=== PATIENT | female | born 1950 | race Caucasian/White ===

== ENCOUNTER 2024-05-30 22:39 | Emergency (ER) | payer OTHER ==
[~2024-05-30] VITALS: Ht 167.6 cm; Wt 74.0 kg
[~2024-05-30 22:39] MED LIST: APIX5TAB PO; EMPA1TAB PO; FEXO-42 PO; METO-158 PO; VERI10TA PO
--- NOTE | 2024-05-30 23:03 | ED.PDOC ---
HPI Comments 73 year old female brought in by EMS presents to the ED with a chief complaint of palpitations onset today (05/30/24) around 20:30. Patient states she looked at her watch and noticed HR was elevated, called urgent care and was told to call 911. Upon EMS arrival HR was 174, BP 170/129 and upon ED arrival HR was 90. Patient states she is compliant with her medication. PMHx a-fib, CHF. Denies chest pain, shortness of breath, fever, chills, headache, nausea, vomiting, diarrhea, dizziness, weakness. No other symptoms or modifying factors present at this time. Chief Complaint: Palpitations Time Seen by MD: 22:45 Reviewed Notes: Medications, Allergies Allergies: Uncoded Allergies: COLD TEMPERATURES (Allergy, Unknown, SWOLLEN HIVES, 05/12/24) NONE (Allergy, Unknown, 05/12/24) Home Meds Reported Medications Fexofenadine Hydrochloride (PETER ALLERGY) 180 Mg Tab, 1 TAB PO DAILY for COLD URTICARIA, #30 TAB 2 Refills 05/12/24 Vericiguat (Verquvo) 10 Mg Tab, 10 MG PO DAILY for CIRCULATION, TAB 05/12/24 Empagliflozin (Jardiance) 10 Mg Tab, 10 MG PO DAILY for HF, TAB 05/12/24 Apixaban Base (ELIQUIS) 5 Mg Tab, 5 MG PO BID for A. FIB, TAB 05/12/24 Metoprolol Tartrate (Metoprolol Tartrate) 50 Mg Tab, 50 MG PO DAILY for ARRHYTHMIA for 30 Days, MG 05/12/24 Information Source: Patient, Emergency Med Personnel Mode of Arrival: EMS Severity: Moderate Timing: Hours Duration: Since onset Prehospital treatment: None Radiation: No Radiation Onset: At Rest PE Risk Factors: None History of: Other Associated Signs and Symptoms: Palpitations Past Medical History PAST MEDICAL HISTORY: AFIB, CHF Surgical History: Denies all surgeries ACOUSTIC INTELLIGENCE SPECIALIST History: No Pertinent ACOUSTIC INTELLIGENCE SPECIALIST History Family History Family History: Reviewed,noncontributory to illness, No family hx of Cancer, No family hx of DM, No family hx of Heart nancy, No family hx of HTN, No family hx ofKidney nancy, No family hx of Liver nancy, No family hx of Lung nancy, No family hx of Stroke Social History Smoker: Non-Smoker Alcohol: Denies ETOH Use Drugs: Denies Drug Use Lives In: Home Constitutional: denies: chills, diaphoresis, fatigue, fever, malaise, sweats, weakness, others EENTM: denies: blurred vision, double vision, ear bleeding, ear discharge, ear drainage, ear pain, ear ringing, eye pain, eye redness, hearing loss, mouth pain, mouth swelling, nasal discharge, nose bleeding, nose congestion, nose pain, photophobia, tearing, throat pain, throat swelling, voice changes, others Respiratory: denies: cough, hemoptysis, orthopnea, SOB at rest, shortness of breath, SOB with excertion, stridor, wheezing, others Cardiovascular: reports: palpitations; denies: chest pain, dizzy spells, diaphoresis, Dyspnea on exertion, edema, irregular heart beat, left arm pain, lightheadedness, PND, syncope, others Gastrointestinal: denies: abdomen distended, abdominal pain, blood streaked bowels, constipated, diarrhea, dysphagia, difficulty swallowing, hematemesis, melena, nausea, poor appetite, poor fluid intake, rectal bleeding, rectal pain, vomiting, others Genitourinary: denies: abnormal vagina bleeding, burning, dyspareunia, dysuria, flank pain, frequency, hematuria, incontinence, pain, , vagina discharge, urgency, others Neurological: denies: dizziness, fainting, headache, left sided numbness, left sided weakness, numbness, paresthesia, pre-existing deficit, right sided numbness, right sided weakness, seizure, speech problems, tingling, tremors, weakness, others Musculoskeletal: denies: back pain, gout, joint pain, joint swelling, muscle pain, muscle stiffness, neck pain, others Integumetry: denies: bruises, change in color, change in hair/nails, dryness, laceration, lesions, lumps, rash, wounds, others Allergic/Immunocompromised: denies: Difficulty Healing, Frequent Infections, Hives, Itching, others Hematologic/Lymphatic: denies: anemia, blood clots, easy bleeding, easy bruising, swollen glands, others Endocrine: denies: excessive hunger, excessive sweating, excessive thirst, excessive urination, flushing, intolerance to cold, intolerance to heat, unexplained weight gain, unexplained weight loss, others Psychiatric: denies: anxiety, bipolar disorder, depression, hopeless, panic disorder, schizophrenia, sleepless, suicidal, others All Other Systems: Reviewed and Negative Physical Exam General Appearance: No Apparent Distress, Normal HEENT: Normal ENT Inspection, Pharynx Normal, TMs Normal Neck: Full Range of Motion, Non-Tender, Normal, Normal Inspection Respiratory: Chest Non-Tender, Lungs Clear, No Accessory Muscle Use, No Respiratory Distress, Normal Breath Sounds Cardiovascular: No Edema, No JVD, No Murmur, No Gallop, Normal Peripheral Pulses, Regular Rate/Rhythm Breast Exam: Deferred Gastrointestinal: No Organomegaly, Non Tender, No Pulsatile Mass, Normal Bowel Sounds, Soft Genitalia: Deferred Pelvic: Deferred Rectal: Deferred Extremities: No calf tenderness, Normal capillary refill, Normal inspection, Normal range of motion, Non-tender, No pedal edema Musculoskeletal : Apperance: Normal Neurologic: Alert, curriculum and instruction specialist II-XII nml as Tested, No Motor Deficits, Normal Affect, Normal Mood, No Sensory Deficits Cerebellar Function: Normal Reflexes: Normal Skin: Dry, Normal Color, Warm Lymphatic: No Adenopathy Was a procedure done? Was a procedure done?: No CP Differential Dx Differential Diagnosis: A-fib, RI, PAC's Differential Diagnosis: HTN Essential, HTN Accelerated Differential Diagnosis: Gastritis, Myocardial Infarction X-Ray, Labs, Meds, VS Vital Signs Date Time Temp Pulse Resp B/P (MAP) Pulse Ox O2 Delivery O2 Flow Rate FiO2 05/31/24 01:29 92 05/30/24 23:52 93 18 95 Room Air* 0 21 05/30/24 23:48 98.4 93 18 165/104 (124) 95 98.4 05/30/24 23:32 100 05/30/24 22:46 98.2 94 16 170/129 (143) 95 98.2 05/30/24 22:39 92 Lab Test 05/31/24 01:27 05/31/24 00:27 Range/Units Troponin I High Sensitivity Pending 6 </=34 ng/L White Blood Count 7.1 4.4-10.8 10^3/uL Red Blood Count 5.17 4.0-5.20 10^6/uL Hemoglobin 15.1 12.2-16.2 g/dL Hematocrit 44.3 36.0-46.0 % Mean Corpuscular Volume 85.7 80.0-100.0 fL Mean Corpuscular Hemoglobin 29.3 28.0-32.0 pg Mean Corpuscular Hemoglobin Concent 34.2 32.0-36.0 g/dL Red Cell Distribution Width 17.5 H 11.8-14.3 % Platelet Count 354 140-450 10^3/uL Mean Platelet Volume 6.0 L 6.9-10.8 fL Neutrophils (%) (Auto) 59.6 37.0-80.0 % Lymphocytes (%) (Auto) 27.7 10.0-50.0 % Monocytes (%) (Auto) 10.3 0.0-12.0 % Eosinophils (%) (Auto) 0.9 0.0-7.0 % Basophils (%) (Auto) 1.5 0.0-2.0 % Neutrophils # (Auto) 4.2 1.6-8.6 10 ^3/uL Lymphocytes # (Auto) 2.0 0.4-5.4 10 ^3/uL Monocytes # (Auto) 0.7 0-1.3 10 ^3/uL Eosinophils # (Auto) 0.1 0-0.8 10 ^3/uL Basophils # (Auto) 0.1 0-0.2 10 ^3/uL Nucleated Red Blood Cells 0.1 % Sodium Level 141 136-145 mmol/L Potassium Level 3.8 3.5-5.1 mmol/L Chloride Level 107 98-107 mmol/L Carbon Dioxide Level 25 20-31 mmol/L Anion Gap 9 5-15 Blood Urea Nitrogen 13 9-23 mg/dL Creatinine 0.79 0.550-1.02 mg/dL Glomerular Filtration Rate Calc 79 >90 mL/min BUN/Creatinine Ratio 16.5 10.0-20.0 Serum Glucose 106 74-106 mg/dL Calcium Level 10.6 H 8.7-10.4 mg/dL B-Type Natriuretic Peptide 107.70 0-100 pg/mL [address] [address] Ph: [phone] DIAGNOSTIC IMAGING Diagnostic Imaging Report : [id number] Signed PATIENT: MARGO HERNANDEZ ACCT: [id number] UNIT: [id number] : 1950 LOC: ER ROOM / BED: / AGE / SEX: 73 / F ADM STATUS: REG ER SERVICE ORDERING PHYSICIAN: DIEGO ANAND MD PROCEDURE(s): CXRP - CHEST PORTABLE REASON: palpitations ORDER NUMBER(s): [id number], ACCESSION NUMBER(s): [id number] CHEST RADIOGRAPH Indication: palpitations Technique: Single frontal view of the chest was obtained COMPARISON: None FINDINGS: Lines and Tubes: None Lungs: Clear Pleura: No effusion. No pneumothorax. Cardiomediastinal contours: Unremarkable Bones: Unremarkable IMPRESSION: No abnormality demonstrated. ATED BY: DOYLE MCMILLAN MD DICTATED DATE/TIME: 05/31/24129 SIGNED BY: DOYLE MCMILLAN MD SIGNED DATE/TIME: 05/31/24129 CC: Time of 1ST Reevaluation: 23:15 Reevaluation 1ST: Unchanged Patient Education/Counseling: Diagnosis, Treatment, Prognosis Family Education/Counseling: No Family Present Departure 1 Departure Time of Disposition: 01:45 (Patient is asymptomatic. Patient is feeling well. Vitals are normal EKGs nonischemic. We will discharge patient home with outpatient follow) Impression: Primary Impression: Tachycardia Disposition: 01 HOME / SELF CARE / HOMELESS Condition: Stable Additional Instructions: You presented today with concern for elevated heart rate. Your workup today was benign including labs, troponin, EKG, chest x-ray. Your pain may be from musculoskeletal strain, acid reflux, anxiety, or many other factors. It is important to follow up with your regular doctor within 1 week. If your symptoms worsen or you have any other concerns please return to the emergency room. Discharged With: Self Critical Care Note Critical Care Time?: No Stability Stability form required: No Heart Score Heart Score: Heart Score Response (Comments) Value History Slightly Suspicious 0 EKG Normal 0 Age >65 2 Risk Factors 1 or 2 risk factors 1 Troponin Normal limit 0 Total 3 I personally scribed for DIEGO ANAND MD ([email or web address]) on 05/30/24 at 23:03. Electronically submitted by Jen Plummer ([email or web address]). I personally scribed for DIEGO ANAND MD ([email or web address]) on 05/30/24 at 23:07. Electronically submitted by Jen Plummer ([email or web address]). I personally scribed for DIEGO ANAND MD ([email or web address]) on 05/31/24 at 01:35. Electronically submitted by Jen Plummer ([email or web address]). DIEGO ANAND MD May 30, 2024 23:03
[2024-05-30 23:52] VITALS: PULSE 93; RESP 18; O2SAT 95
[2024-05-31 00:37] LABS: Basophils # (auto) 0.1 10 ^3/uL (0-0.2); Basophils % (auto) 1.5 % (0.0-2.0); Eosinophils # (auto) 0.1 10 ^3/uL (0-0.8); Eosinophils % (auto) 0.9 % (0.0-7.0); Hematocrit 44.3 % (36.0-46.0); Hemoglobin 15.1 g/dL (12.2-16.2); Lymphocytes % (auto) 27.7 % (10.0-50.0); Mean Corpuscular Hemoglobin 29.3 pg (28.0-32.0); Mean Corpuscular Hgb Conc. 34.2 g/dL (32.0-36.0); Mean Corpuscular Volume 85.7 fL (80.0-100.0); Monocytes # (auto) 0.7 10 ^3/uL (0-1.3); Monocytes % (auto) 10.3 % (0.0-12.0); Neutrophils # (auto) 4.2 10 ^3/uL (1.6-8.6); Neutrophils % (auto) 59.6 % (37.0-80.0); Nucleated Red Blood Cells % 0.1 %; Platelet Count (auto) 354 10^3/uL (140-450); Red Blood Cells 5.17 10^6/uL (4.0-5.20); Red Cell Distribution Width 17.5 % (11.8-14.3); White Blood Cell 7.1 10^3/uL (4.4-10.8)
[2024-05-31 00:47] LABS: Chloride 107 mmol/L (98-107); Potassium 3.8 mmol/L (3.5-5.1); Sodium 141 mmol/L (136-145)
[2024-05-31 00:48] LABS: Anion Gap 9 (5-15); Carbon Dioxide 25 mmol/L (20-31)
[2024-05-31 00:53] LABS: BUN/Creatinine Ratio 16.5 (10.0-20.0); Blood Urea Nitrogen 13 mg/dL (9-23); Glucose 106 mg/dL (74-106)
[2024-05-31 00:54] LABS: Calcium 10.6 mg/dL (8.7-10.4)
--- NOTE | 2024-05-31 01:32 | DVH ---
CHEST RADIOGRAPH Indication: palpitations Technique: Single frontal view of the chest was obtained COMPARISON: None FINDINGS: Lines and Tubes: None Lungs: Clear Pleura: No effusion. No pneumothorax. Cardiomediastinal contours: Unremarkable Bones: Unremarkable IMPRESSION: No abnormality demonstrated.
[2024-05-31 01:56] LABS: Urine Bacteria None Seen /hpf (None Seen)
[2024-05-31 02:05] LABS: Urine Blood Negative /uL (Negative); Urine Clarity Clear (Clear); Urine Color Light-Yellow (Yellow); Urine Protein, UAD Negative (Negative); Urine Specific Gravity 1.012 (1.001-1.035); Urine Squamous Epithelial Cell FEW /hpf (<5); Urine Urobilinogen Normal (Negative); Urine WBC < 1 /HPF (0-5); Urine pH 6.5 (5.0-9.0)
[2024-05-31 02:10] VITALS: BP 119/70; PULSE 91; RESP 24; TEMP 98.7; O2SAT 94
--- NOTE | 2024-05-31 06:40 | ECG ---
[facility] Test Date: 2024-05-30 Test Time: 22:37:55 Pat Name: MARGO HERNANDEZ Department: ed Room: Gender: F Safety Relief Valve Technician: leslie : 1950 Requested By: DIEGO ANAND Order Number: [id number] Reading MD: Garfield Green Measurements Intervals [place] Rate: 92 P: 50 IN: 149 QRS: -77 QRSD: 105 T: 51 QT: 365 QTc: 452 Interpretive Statements Sinus rhythm Supraventricular bigeminy Inferior infarct, old Probable anterior infarct, age indeterminate Electronically Signed On 05-31-2024 22:41:35 PDT by Garfield Green Please click the below link to view image of tracing.
--- NOTE | 2024-05-31 06:40 | ECG ---
[facility] Test Date: 2024-05-30 Test Time: 23:32:29 Pat Name: MARGO HERNANDEZ Department: ED Room: Gender: F Net Software Developer: [email or web address] : 1950 Requested By: DIEGO ANAND Order Number: [id number] Reading MD: Garfield Green Measurements Intervals [place] Rate: 100 P: 67 AR: 131 QRS: -55 QRSD: 98 T: 41 QT: 374 QTc: 483 Interpretive Statements Sinus tachycardia Multiple premature complexes, vent & supraven Abnormal R-wave progression, late transition Inferior infarct, old Electronically Signed On 05-31-2024 22:41:37 PDT by Garfield [email or web address] Please click the below link to view image of tracing.
--- NOTE | 2024-05-31 06:41 | ECG ---
[facility] Test Date: 2024-05-31 Test Time: 01:29:37 Pat Name: MARGO HERNANDEZ Department: ED Room: Gender: F Heading Machine Operator: [email or web address] : 1950 Requested By: DIEGO ANAND Order Number: [id number] Reading MD: Garfield Green Measurements Intervals [place] Rate: 92 P: 72 NV: 145 QRS: -54 QRSD: 84 T: 76 QT: 381 QTc: 472 Interpretive Statements Sinus rhythm Multiple premature complexes, vent & supraven Inferior infarct, old Probable anterior infarct, age indeterminate Electronically Signed On 05-31-2024 22:41:56 PDT by Garfield Green Please click the below link to view image of tracing.
== END 2024-05-31 02:43 | disposition home or self-care (01) ==
LOC: ER 22:39 → EDBD 22:39 → ER 05-31 02:43
DX: R00.0 Tachycardia, unspecified (principal); I48.91 Unspecified atrial fibrillation; I50.9 Heart failure, unspecified; Z79.899 Other long term (current) drug therapy; Z79.84 Long term (current) use of oral hypoglycemic drugs; Z79.01 Long term (current) use of anticoagulants
CPT/HCPCS: 36415; 71045; 80048; 81001; 83880; 84484; 85025; 93005